=== PATIENT | female | born 1975 | race Hispanic/Latino ===

== ENCOUNTER → 2022-09-06 14:47 | Outpatient (CLI) | payer OTHER, SELFPAY | PROVIDERS: Referring Provider Internal Medicine; Visit Provider Internal Medicine | DX: Z23 Encounter for immunization (principal) | CPT/HCPCS: 90471; 90686 ==

== ENCOUNTER → 2023-06-04 12:04 | Outpatient (CLI) | payer OTHER, SELFPAY | PROVIDERS: PCP Obstetrics & Gynecology; Visit Provider Obstetrics & Gynecology | DX: R35.0 Frequency of micturition (principal) | CPT/HCPCS: 87086 ==

== ENCOUNTER → 2023-06-10 06:47 | Outpatient (CLI) | payer OTHER, SELFPAY ==
--- NOTE | 2023-06-10 06:48 | DI.US.S_ITS ---
PROCEDURE: US PELVIC COMPLETE INDICATIONS: PMB TECHNIQUE: Real-time scanning was performed of the pelvic organs, with image documentation. Additional endovaginal scanning was necessary due to incomplete visualization of the adnexal and endometrial structures by transabdominal scanning. COMPARISON: None. FINDINGS: Uterus: Uterus is anteverted and measures 12.6 x 7.6 x 10.0 cm. The myometrium is heterogeneous. The endometrium visualized. An IUD is visualized within the inferior aspect of the endometrial canal. There is a right anterior intramural fibroid which measures 4.1 x 3.9 x 3.2 cm. A midline anterior intramural fibroid which measures 3.7 x 3.4 x 2.7 cm. And a left posterior subserosal fibroid which measures 3.9 x 3.9 x 4.1 cm. Ovaries: The ovaries are not visualized. Other: No pathologic free abdominal or pelvic fluid. IMPRESSION: 1. Fibroid uterus. 2. IUD visualized within the lower endometrial cavity. We strive to produce accurate, complete, and clear reports of imaging services. To assist us in improving patient care, this report was composed using standard report templates and voice recognition software. Therefore, it may contain abnormal punctuation, insertions and/or omissions. Occasional wrong-word or sound-alike substitutions may occur. Though we review the report and make efforts to correct it, we do recommend that the report be read carefully in proper context to recognize any text inaccuracies. Dictated by: Audrey Hamilton M.D. on 06/10/2023 at 17:00 Approved by: Audrey Hamilton M.D. on 06/10/2023 at 17:03
== END ==
PROVIDERS: PCP Obstetrics & Gynecology; Referring Provider Obstetrics & Gynecology; Visit Provider Obstetrics & Gynecology
DX: N95.0 Postmenopausal bleeding (principal); N85.2 Hypertrophy of uterus; D25.1 Intramural leiomyoma of uterus; D25.2 Subserosal leiomyoma of uterus; Z97.5 Presence of (intrauterine) contraceptive device
CPT/HCPCS: 76830; 76856

== ENCOUNTER 2023-08-22 08:38 | Day surgery (SDC) | payer OTHER, SELFPAY ==
[2023-08-19 12:24] VITALS: BMI 34.4
[2023-08-22] VITALS (7 sets, daily range): BP systolic 126–144; BP diastolic 71–83; PULSE 63–87; RESP 10–17; TEMP 36.1–36.2; O2SAT 94–100; BMI 34.9
[2023-08-22] MEDS: LACTATED RINGERS 1,000 ML 42 ML IV ×2 (08:58→11:55)
--- NOTE | 2023-08-22 09:23 | PM.PREOP ---
Pre-operative Note COVID-19 COVID-19 status: Not tested Interval Note History & Physical reviewed/Exam performed by Physician: Yes Changes to H&P: No
--- NOTE | 2023-08-22 10:13 | SUR.OPER ---
Lithotomy on padded OR bed, head on pillow, arms secured on padded arm boards at <90 degrees abduction. Legs secured in padded yellow fins stirrups.
[2023-08-22] MEDS: BUPIVACAINE 0.25% (PF) VIAL 30 ML INJ (10:31)
[2023-08-22] MEDS: BUPIVACAINE 0.25% (PF) 30 ML, EPINEPHrine 0.15 MG INJ (10:33)
[2023-08-22] MEDS: CEFAZOLIN 2 GM/100 ML PREMIX 100 ML IV (10:34)
--- NOTE | 2023-08-22 10:54 | PM.GYNOP.1 ---
Operative Date/Time/Diagnoses Date of procedure: 08/22/23 Time of procedure: 09:50 Pre-op diagnosis: Stress urinary incontinence Post-op diagnosis: same Procedure & Clinicians Procedure: Procedures Operation Date: 08/22/23 09:45 <No data on this case meets the specified criteria> Indications: Isabel is a 48-year-old A1 who presented in May 2023 with a history of progressively frequent JULIA and urge incontinence despite Kegel exercises.? Patient experienced menarche at age 14 and has had 2 spontaneous vaginal births with her largest weighing 9 lb 11 oz. she had significant obstetrical lacerations with her 2nd delivery.? Cycles have been regular up until age 39 or so when she was on control pills for regulation of her cycles.? Patient had a Mirena IUD inserted in [place] a little over a year ago and has basically been experiencing spotting/bleeding since that time on virtually a continuous basis.? She currently uses estradiol patches 0.05 mg per day and is having testosterone pellets placed every 3 months to help with sleeping.? The patient had not had any recent pelvic imaging and therefore a pelvic US was performed 06/10/2023 which showed: FINDINGS:? ?? Uterus:? Uterus is anteverted and measures 12.6 x 7.6 x 10.0 cm. The myometrium is heterogeneous. ? The endometrium visualized.? An IUD is visualized within the inferior aspect of the endometrial canal.? There is a right anterior intramural fibroid which measures 4.1 x 3.9 x 3.2 cm.? A midline anterior intramural fibroid which measures 3.7 x 3.4 x 2.7 cm.? And a left posterior subserosal fibroid which measures 3.9 x 3.9 x 4.1 cm. ? ?Ovaries:? The ovaries are not visualized. ? Other:? No pathologic free abdominal or pelvic fluid. ?? IMPRESSION:? ? 1. Fibroid uterus. ? 2. IUD visualized within the lower endometrial cavity.?. We discussed treatment options for stress urinary incontinence and she would like to proceed with placement of a mid urethral sling.? She understands that this is not a treatment for her urge component and instead that will be addressed pharmacologically and with bladder training.? She is scheduled for performance of mid urethral sling placement and cystoscopy for which she presents today for preoperative evaluation, counseling, and consent. Surgeon: Epi Jackson Anesthesia Type: General Operative Notes Findings: Bimanual exam shows the uterus to be 10 weeks in size and myomatous in contour. No adnexal masses appreciated. A stage I - II cystocele is noted as well as stage 1-2 uterovaginal prolapse. Bladder mucosa is unremarkable and there was no evident injury to the bladder or the ureters based on cystoscopy. Closure Type: primary Specimen(s): none Estimated blood loss (mL): 20 Blood products transfused: none Procedure in detail: With the patient under satisfactory general anesthesia in the modified dorsal lithotomy position, the vagina, perineum, and lower abdomen prepped and draped in the usual manner for mid urethral sling placement and cystoscopy. A pre-surgical safety time-out was then taken in accordance with [facility] Main OR protocols. A weighted speculum was inserted in the vagina and the anterior vaginal wall inspected. A Green catheter was inserted in the bladder and the mid urethra was identified by palpation of the Green bulb. Once the mid urethra had been identified, 2 Allis clamps were placed and the area of incision infiltrated with 0.25% Marcaine with epinephrine. A 2 cm longitudinal incision of the vaginal mucosa overlying the mid urethra was then made and using Metzenbaum scissors the dissection was carried lateral on both sides so as to be able to safely introduce the retropubic tension-free vaginal tape. The TVT needle was placed 1st on the right side followed by placement of a left up through the suprapubic skin. The needle tips were brought out through the skin and remained in place while the Green catheter was removed and cystoscopy performed with findings as noted above. The TVT needles were then brought up through the suprapubic incisions and removed with suture scissors. The mid urethral sling was then appropriately positioned under the mid urethra and the plastic sleeves removed from the TVT once it was in correct position. The redundant portion TVT material was then excised at the skin line of the suprapubic incisions. Correct positioning of the DVT was then confirmed and the vaginal incision closed with 3-0 chromic in a running locking stitch. Pressure was maintained on the retropubic tissues for 5 minutes so as to reduce the risk subsequent bleeding or bruising. The suprapubic incisions were then closed with skin glue and inappropriate dressing was applied. Patient was then awakened from anesthesia and transferred to the PACU for a period of observation and recovery after having tolerated procedure well. Complications: none Post-operative Condition: stable Disposition: PACU Plan for aftercare: Routine postoperative care with follow-up planned for 2 weeks postop
[2023-08-22] MEDS: ONDANSETRON 4 MG/2 ML INJ IV (11:53)
[2023-08-22] MEDS: OXYCODONE IR 5 MG TABLET PO (11:54)
== END 2023-08-22 13:30 | disposition home or self-care (01) ==
LOC: OR 08:39 → AC 08:39
PROVIDERS: PCP Physician Assistant Medical; Referring Provider Obstetrics & Gynecology; Visit Provider Obstetrics & Gynecology
PROC: 0TSD0ZZ Reposition Urethra, Open Approach (ICD-10-PCS; CPT 57288; principal; 2023-08-22 09:45)
DX: N39.46 Mixed incontinence (principal); N81.2 Incomplete uterovaginal prolapse
CPT/HCPCS: 57288; C1771; J0171; J0330; J0690; J2405; J2704; J2765; J3010

== ENCOUNTER → 2023-09-04 11:05 | Outpatient (CLI) | payer OTHER, SELFPAY ==
--- NOTE | 2023-09-04 11:06 | DI.MG.S_ITS ---
BILATERAL DIGITAL SCREENING MAMMOGRAM 3D/2D WITH CAD: 09/04/2023 CLINICAL: Routine screening. Comparison is made to exams dated: 12/28/2020 mammogram - [facility], 01/10/2015 mammogram, and 12/15/2014 mammogram - [facility]. Both breasts are heterogeneously dense, which may obscure small masses (category c / 51-75% glandular tissue). Current study was also evaluated with a Computer Aided Detection (CAD) system. There is an oval asymmetry with a circumscribed margin in the left breast at 6 o'clock middle depth. No other significant masses, calcifications, or other findings are seen in either breast. IMPRESSION: INCOMPLETE: NEEDS ADDITIONAL IMAGING EVALUATION The oval asymmetry in the left breast is indeterminate. Additional views with possible ultrasound are recommended. Based on the Tyrer Cuzick model (a risk assessment model) the patient's lifetime risk is 10.5% and her 10 year risk is 2.3%. According to the ACR, ACS, and NCCN guidelines, an annual breast MRI exam along with mammogram is recommended if the patient's lifetime risk is 20% or greater. This exam was interpreted at Station ID: [id number]. NOTE: For mammograms, a report in lay terms will be sent to the patient. Approximately 15% of breast malignancies will not be visualized mammographically. In the management of a palpable breast mass, a negative mammogram must not discourage biopsy of a clinically suspicious lesion. Electronically Signed By: Christopher López M.D. acr/:09/04/2023 12:23:01 letter sent: Additional Imaging Needed ACR BI-RADS Category 0: Incomplete 3340F
== END ==
PROVIDERS: PCP Physician Assistant Medical; Referring Provider Physician Assistant Medical; Visit Provider Physician Assistant Medical
DX: Z12.31 Encounter for screening mammogram for malignant neoplasm of breast (principal); N64.89 Other specified disorders of breast
CPT/HCPCS: 77063; 77067

== ENCOUNTER → 2023-09-30 11:54 | Outpatient (CLI) | payer OTHER, SELFPAY ==
--- NOTE | 2023-09-30 | DI.MG.S_ITS ---
UNILATERAL LEFT DIGITAL DIAGNOSTIC MAMMOGRAM 3D/2D WITH ADDITIONAL VIEWS: 09/30/2023 CLINICAL: Additional evaluation requested from prior study. Comparison is made to exams dated: 09/04/2023 mammogram - [facility], 12/28/2020 mammogram - [facility], and 01/10/2015 mammogram - [facility]. The left breast is heterogeneously dense, which may obscure small masses (category c / 51-75% glandular tissue). There is an oval focal asymmetry with a circumscribed margin in the left breast at 6 o'clock middle depth. No other significant masses or calcifications are seen in the breast. IMPRESSION: INCOMPLETE: NEEDS ADDITIONAL IMAGING EVALUATION The oval focal asymmetry in the left breast resembles a cyst and is indeterminate. A targeted ultrasound is recommended and will immediately follow. Based on the Tyrer Cuzick model (a risk assessment model) the patient's lifetime risk is 10.5% and her 10 year risk is 2.3%. According to the ACR, ACS, and NCCN guidelines, an annual breast MRI exam along with mammogram is recommended if the patient's lifetime risk is 20% or greater. This exam was interpreted at Station ID: [id number]. NOTE: For mammograms, a report in lay terms will be sent to the patient. Approximately 15% of breast malignancies will not be visualized mammographically. In the management of a palpable breast mass, a negative mammogram must not discourage biopsy of a clinically suspicious lesion. Electronically Signed By: Burt Schulte M.D. slc/:09/30/2023 12:24:52 ACR BI-RADS Category 0: Incomplete 3340F
--- NOTE | 2023-09-30 | DI.US.S_ITS ---
LIMITED ULTRASOUND OF LEFT BREAST AND AXILLA: 09/30/2023 CLINICAL: Patient returns today to evaluate a focal asymmetry in the left breast. Comparison is made to exams dated: 09/30/2023 mammogram, 09/04/2023 mammogram - [facility], 12/28/2020 mammogram - [facility], 01/10/2015 mammogram, and 12/15/2014 mammogram - [facility]. Color flow and real-time ultrasound of the left breast 3 o'clock, 5-6 o'clock, and axilla regions were performed. Hartley scale images of the real-time examination were reviewed. There is a 0.7 cm x 0.7 cm x 0.4 cm oval mass with a circumscribed margin in the left breast at 6 o'clock middle depth 6 cm from the nipple. This oval mass is hypoechoic. This correlates with mammography findings. Color flow imaging demonstrates that there is no vascularity present. There also is a 0.7 cm x 0.7 cm x 0.5 cm oval mass with a circumscribed margin in the left breast at 5 o'clock posterior depth 7 cm from the nipple. This oval mass is hypoechoic. This correlates as an incidental finding. Color flow imaging demonstrates that there is an adjacent vascularity. Additionally, there is a 0.6 cm x 0.5 cm x 0.3 cm oval mass with a circumscribed margin in the left breast at 3 o'clock anterior depth 3 cm from the nipple. This oval mass is hypoechoic. This correlates as an incidental finding. Color flow imaging demonstrates that there is no vascularity present. No significant abnormalities were seen sonographically in the left axilla. IMPRESSION: PROBABLY BENIGN The 0.7 cm mass in the left breast at 6 o'clock middle depth most likely is a fibroadenoma and is probably benign. The 0.7 cm mass in the left breast at 5 o'clock posterior depth most likely is a fibroadenoma and is probably benign. The 0.6 cm mass in the left breast at 3 o'clock anterior depth has a differential diagnosis of a fibroadenoma or complicated cysts and is probably benign. These most likely represent multiple bilateral circumscribed benign masses. 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 A follow-up mammogram and an ultrasound in 6 months is recommended as a precaution. This exam was interpreted at Station ID: [id number]. Electronically Signed By: Burt Schulte M.D. slc/:09/30/2023 13:59:03 letter sent: Followup Recommended Ultrasound BI-RADS: 3 Probably benign
== END ==
PROVIDERS: PCP Physician Assistant Medical; Referring Provider Physician Assistant Medical; Visit Provider Physician Assistant Medical
DX: R92.8 Other abnormal and inconclusive findings on diagnostic imaging of breast (principal); N63.23 Unspecified lump in the left breast, lower outer quadrant; N63.25 Unspecified lump in the left breast, overlapping quadrants; R31.9 Hematuria, unspecified
CPT/HCPCS: 76642; 77065; 87077; 87086; 87147; G0279

== ENCOUNTER → 2023-09-30 15:09 | Outpatient (CLI) | payer OTHER, SELFPAY | PROVIDERS: PCP Physician Assistant Medical; Visit Provider Obstetrics & Gynecology | DX: R31.9 Hematuria, unspecified (principal) | CPT/HCPCS: 87086 ==

== ENCOUNTER 2023-12-11 11:05 | Day surgery (SDC) | payer OTHER, SELFPAY ==
[2023-12-11] MEDS: LACTATED RINGERS 1,000 ML 100 ML IV (11:59)
[2023-12-11 12:00] VITALS: BP 123/78; PULSE 83; RESP 16; TEMP 36.2; O2SAT 97
--- NOTE | 2023-12-11 12:46 | P.HP_ITS ---
History of Present Illness History of Present Illness Date Patient Seen: 12/11/23 Time Patient Seen: 12:47 Chief complaint: Screening Colonoscopy Narrative: Isabel is a 48 year old woman here for a colonscopy for colon cancer screening. She believes she had one about 10 years ago that was normal. No known family history of colon cancer. [facility] Medical History (Updated 12/11/23 @ 12:49 by Remy Rios MD) IUD (intrauterine device) in place Asthma History of urinary incontinence Hypertension Surgical History (Updated 06/03/23 @ 20:06 by Candy Gutierrez) Anesthesia History of colonoscopy (~2012) History of dilatation and curettage (~08/2014) History of lumpectomy of right breast (~02/2015) Family History (Updated 06/03/23 @ 20:08 by Candy Gutierrez) Father Accident Grandmother Cancer Social History household members: family Smoking Status: Never smoker alcohol intake: current Meds Home Medications and Allergies Home Medications Medication Instructions Recorded Confirmed Type acyclovir 400 mg tablet 400 mg PO BID 06/04/23 12/11/23 History albuterol sulfate 90 mcg/actuation 1 inh inhalation ONCE 06/04/23 12/11/23 History aerosol inhaler beclomethasone dipropionate 80 80 mcg inhalation PRN PRN asthma 06/04/23 12/11/23 History mcg/actuation aerosol inhaler estradiol 0.05 mg/24 hr semiweekly 1 patch transdermal 2XW 06/04/23 12/11/23 History transdermal patch tirzepatide 5 mg/0.5 mL 5 mg SUBCUT QWEEK 06/04/23 12/11/23 History subcutaneous pen injector (Mounjaro) rosuvastatin 10 mg tablet (Crestor) 10 mg PO DAILY 08/20/23 12/11/23 History rosuvastatin 10 mg tablet (Crestor) 10 mg PO DAILY 09/04/23 09/30/23 History tolterodine 4 mg capsule,extended 4 mg PO DAILY #30 caps 09/30/23 12/11/23 Rx release 24 hr (Detrol LA) Allergies Allergy/AdvReac Type Severity Reaction Status Date / Time Penicillins Allergy Severe itchiness Verified 12/11/23 11:54 Exam Vital Signs (past 8 hours): - 12/11/23 12:00 Temperature 97.1 F L Pulse Rate 83 Respiratory Rate 16 Blood Pressure 123/78 Pulse Oximetry 97 Oxygen Delivery Method Room Air Oxygen Delivery Method Room Air Const General: healthy appearing and No acute distress Resp Effort & Inspection: normal respiratory effort Assessment & Plan Assessment and plan (1) Colon cancer screening: Status: Acute Plan We reviewed the risks, benefits and rationale for colonoscopy for colon cancer screening and she would like to proceed.
--- NOTE | 2023-12-11 13:32 | PM.OP.COLON ---
Operative Date/Time/Diagnoses Date of procedure: 12/11/23 Time of procedure: 13:32 Pre-op diagnosis: Colon cancer screening Post-op diagnosis: same Procedure & Clinicians Study performed: Colonoscopy Same procedure as scheduled: Yes Surgeon: Remy Rios Procedure Notes Procedure in detail: Surgeon: Remy Rios MD Anesthesia: Aline Maldonado CRNA Procedure: The patient was brought to the endoscopy suite, placed in left lateral decubitus position. The patient was connected to monitoring devices. A time-out was performed. Sedation was administered. Once the patient was adequately sedated, a digital rectal exam was performed and was normal. The scope was then inserted and advanced with some difficulty to the cecum where the appendiceal orifice was identified and photographed. The scope was then slowly withdrawn over greater than 6 minutes. The mucosa was thoroughly inspected. No abnormalities were found. The scope was retroflexed in the rectum. No abnormalities were seen. The scope was straightened and removed. The patient was awakened and brought to recovery. Scope withdrawal time: 10 minutes Sedation time: 24 minutes EBL: 0 Findings: Long but otherwise normal colon Post-procedure Recommendations: Colonoscopy in 10 years Disposition: PACU
[2023-12-11 13:33] VITALS: BP 89/56; PULSE 84; RESP 14; TEMP 36.2; O2SAT 96
[2023-12-11 13:39] VITALS: BP 98/64; PULSE 81; RESP 17; TEMP 36.2; O2SAT 100
[2023-12-11 13:50] VITALS: BP 119/82; PULSE 79; RESP 17; O2SAT 100
[2023-12-11 13:55] VITALS: BP 127/78; PULSE 79; RESP 16; O2SAT 98
== END 2023-12-11 14:07 | disposition home or self-care (01) ==
PROVIDERS: PCP Physician Assistant Medical; Referring Provider Surgery; Visit Provider Surgery
PROC: 0DJD8ZZ Inspection of Lower Intestinal Tract, Via Natural or Artificial Opening Endoscopic (ICD-10-PCS; CPT 45378; principal; 2023-12-11 12:15)
DX: Z12.11 Encounter for screening for malignant neoplasm of colon (principal)
CPT/HCPCS: 45378; J2704